=== PATIENT | female | born 1965 | race Caucasian/White ===

== ENCOUNTER → 2017-03-01 | Outpatient (CLI) | payer SELFPAY ==
[~2017-03-01] MED LIST: ASPIRIN 81M81 MG/TA2 PO; CLARITIN 1010 MG/TAB PO; COLACE 100100 MG/CAP PO; FISH OIL 1000MG1 CAP PO; IBU600 MG PO; PERCOCET 325 MG1 TA2 PO; PRENATAL1 TA7 PO; PRILOTC; VALTREX 50500 MG/TAB PO
== END ==
LOC: COL.RAD 10:27
DX: M47.817 Spondylosis without myelopathy or radiculopathy, lumbosacral region (principal); M48.06 Spinal stenosis, lumbar region

== ENCOUNTER → 2018-04-03 | Outpatient (REF) | LOC: ZLAB.WCH 15:50 | DX: Z01.89 Encounter for other specified special examinations (principal) ==

== ENCOUNTER → 2018-05-24 | Outpatient (CLI) | payer SELFPAY | LOC: COL.RAD 08:30 | DX: K76.89 Other specified diseases of liver (principal); N28.89 Other specified disorders of kidney and ureter; K59.00 Constipation, unspecified; R10.31 Right lower quadrant pain; R16.0 Hepatomegaly, not elsewhere classified | CPT/HCPCS: Q9967 ==

== ENCOUNTER 2018-06-14 08:54 | Day surgery (SDC) | payer SELFPAY ==
[~2018-06-14] VITALS: Ht 162.6 cm; Wt 53.9 kg
[2018-06-14 09:30] VITALS: BP 133/95; PULSE 75; TEMP 97.4
[2018-06-14] MEDS ORDERED: ALLEGRA-D 24HR1 T24 PO (09:34)
[2018-06-14] MEDS ORDERED: AFRIN 15 ML15 ML NS (09:34)
[2018-06-14] MEDS ORDERED: CALCIUM/MAGNESI1 TA8 PO (09:35)
[2018-06-14] MEDS ORDERED: FLONASEALLERGY NS (09:35)
[2018-06-14] MEDS ORDERED: COD LIVER OIL1 CAP PO (09:36)
[2018-06-14] MEDS ORDERED: VITAMIN D 1001000 IU PO (09:36)
[2018-06-14] MEDS ORDERED: [UNRECOGNIZED DRUG - OTHER] PO (09:37)
[2018-06-14 11:15] VITALS: BP 113/85; PULSE 78; TEMP 97.7
[2018-06-14 11:30] VITALS: BP 119/80; PULSE 81
[2018-06-14 11:45] VITALS: BP 122/77; PULSE 56
[2018-06-14 12:00] VITALS: BP 131/85; PULSE 68
== END 2018-06-14 12:29 | disposition home or self-care (01) ==
LOC: SDCO 08:54
DX: K59.00 Constipation, unspecified (principal); R10.31 Right lower quadrant pain; R16.0 Hepatomegaly, not elsewhere classified; Z80.1 Family history of malignant neoplasm of trachea, bronchus and lung; Z79.899 Other long term (current) drug therapy
CPT/HCPCS: J2250; J3010; J7030

== ENCOUNTER → 2018-12-04 | Outpatient (REF) ==
[~2018-12-04] MED LIST changes: +AFRIN 15 ML15 ML NS; +ALLEGRA-D 24HR1 T24 PO; +CALCIUM/MAGNESI1 TA8 PO; +COD LIVER OIL1 CAP PO; +FLONASEALLERGY NS; +VITAMIN D 1001000 IU PO; +[UNRECOGNIZED DRUG - OTHER] PO
== END ==
LOC: ZLAB.WCH 16:00
DX: Z01.89 Encounter for other specified special examinations (principal)

== ENCOUNTER → 2018-12-06 | Outpatient (REF) | LOC: ZLAB.WCH 16:18 | DX: Z01.89 Encounter for other specified special examinations (principal) ==

== ENCOUNTER → 2018-12-09 | Outpatient (REF) | LOC: ZLAB.WCH 16:04 | DX: Z01.89 Encounter for other specified special examinations (principal) ==

== ENCOUNTER 2019-08-01 10:11 | Inpatient (IN) | payer OTHER ==
[2019-08-01] VITALS (20 sets, daily range): BP systolic 105–160; BP diastolic 61–98; PULSE 55–109; TEMP 97.6–97.9
[~2019-08-01] VITALS: Ht 165.1 cm; Wt 68.6 kg
--- NOTE | 2019-08-01 10:20 | NUR ---
Patient ambulatory to LR4 with spouse, changed into gown, FHR/TOCO monitors placed and explained. Patient states she began ara this morning and contractions have become more regular and intense. Denies and leaking of fluid/vaginal bleeding. Plan of care discussed. SVE-/-2 with bag felt [id number]. Kassi notified and orders to admit and plan for around 1200. 1120: IV started, blood obtained and to lab, LR infusing. Patient prepped for csections. Patient off monitors and ambulates to OR.
[2019-08-01] MEDS ORDERED: PRILOSEC10 MG PO (10:37)
[2019-08-01] MEDS ORDERED: PRENATAL TABLET PO (10:37)
[2019-08-01] MEDS ORDERED: VITAMIN B COMPL1 SGL PO (10:38)
[2019-08-01] MEDS ORDERED: SUDAFED 12 HOU120 MG PO (10:38)
[2019-08-01] MEDS ORDERED: AMOXICILLIN/CLA1 TA1 PO (10:38)
[2019-08-01] MEDS ORDERED: CLARITIN 1010 MG/TAB PO (10:38)
[2019-08-01] MEDS ORDERED: MONISTAT 7 VAG45 GM VG (10:39)
[2019-08-01 11:38] LABS: BASO % 0.4 % (0.0-2.0); EOS # 0.1 (0.0-0.7); EOS % 0.7 % (0-4.0); GRAN # 7.6 (1.4-6.5); HEMOGLOBIN 12.6 g/dl (12.5-16.0); MEAN CELL VOLUME 93 fl (80.0-100.0); MEAN CORPUSCULAR HEMOGLOBIN 33 pg (27.0-31.0); MEAN CORPUSCULAR HGB CONC 35 g/dl (33.0-37.0); MEAN PLATELET VOLUME 10.1 fl (7.4-10.4); MONO # 0.9 (0.1-0.6); MONO % 8.3 % (1.7-9.3); PLATELET COUNT 280 K/mm3 (130-400); RED BLOOD COUNT 3.88 M/mm3 (4.10-5.30); REDCELL DISTRIBUTION WIDTH-CV 13.2 % (11.5-14.5)
[2019-08-01 11:40] LABS: HEMATOCRIT 36.1 % (37.0-47.0)
[2019-08-02 00:29] VITALS: BP 130/85; PULSE 84; TEMP 98.3
[2019-08-02 08:55] VITALS: BP 137/76; PULSE 91; TEMP 98.1
[2019-08-02 11:00] VITALS: BP 141/83; PULSE 87; TEMP 97.9
[2019-08-02 15:55] VITALS: BP 118/76; PULSE 85; TEMP 98
[2019-08-02 22:30] VITALS: BP 147/85; PULSE 79; TEMP 97.7
[2019-08-03 06:50] VITALS: BP 110/72; PULSE 82; TEMP 98.1
[2019-08-03] MEDS ORDERED: IBU800 M1 PO (08:33)
[2019-08-03] MEDS ORDERED: PERCOCET 325 MG1 TA2 PO (08:34)
[2019-08-03 16:10] VITALS: BP 139/73; PULSE 98; TEMP 98.2
== END 2019-08-03 17:20 | disposition home or self-care (01) | DRG 788 ==
LOC: LDRO 10:11 → LDR 10:59 → OB 11:00 → LDRO 11:00 → OB 15:47
PROVIDERS: Obstetrics & Gynecology; ADMIT Student in an Organized Health Care Education/Training Program
PROC: 10D00Z1 Extraction of Products of Conception, Low, Open Approach (ICD-10-PCS; principal; 2019-08-01)
DX: O34.211 Maternal care for low transverse scar from previous cesarean delivery (principal); Z3A.38 38 weeks gestation of pregnancy; Z37.0 Single live birth; O99.62 Diseases of the digestive system complicating childbirth; K21.9 Gastro-esophageal reflux disease without esophagitis; O75.89 Other specified complications of labor and delivery; R51 Headache; Z23 Encounter for immunization
CPT/HCPCS: J0690; J1885; J2370; J2405; J2590; J3010; J7120